=== PATIENT | male | born 1995 | race Two or more races ===

== ENCOUNTER 2017-08-11 17:47 | Emergency (ER) | payer OTHER ==
[~2017-08-11] VITALS: Ht 180.3 cm; Wt 59.0 kg
[2017-08-11 17:47] VITALS: BP 112/62
== END 2017-08-11 18:32 | disposition home or self-care (01) ==
LOC: ER 17:54
DX: S61.012A Laceration without foreign body of left thumb without damage to nail, initial encounter (principal); W26.0XXA Contact with knife, initial encounter; Y93.89 Activity, other specified; Y92.89 Other specified places as the place of occurrence of the external cause; Y99.0 Civilian activity done for income or pay
CPT/HCPCS: 29130; 99283; A4606; A6402; Z7610